=== PATIENT | male | born 1955 ===

== ENCOUNTER 2022-11-03 13:27 | Inpatient (IN) | payer OTHER ==
[~2022-11-03] VITALS: Ht 165.1 cm; Wt 56.7 kg
[2022-11-03] MEDS ORDERED: POLY119P17 PO (21:50)
[2022-11-03] MEDS ORDERED: ACET-2154 PO (21:50)
[2022-11-03] MEDS ORDERED: GABA-532 PO ×3 (21:50)
[2022-11-03] MEDS ORDERED: METF-440 PO (21:50)
[2022-11-03] MEDS ORDERED: LIDO30AD10 TP (21:50)
[2022-11-03] MEDS ORDERED: SENN8.6T19 PO (21:50)
[2022-11-03] MEDS: GABAPENTIN 100 MG CAPSULE PO SCH (22:00)
[2022-11-03] MEDS ORDERED: SENNOSIDES 1 TABLET PO PRN (22:00)
[2022-11-03] MEDS ORDERED: POLYETHYLENE GLYCOL 3350 238 GM POWDER PO PRN (22:00)
[2022-11-03 22:02] VITALS: BP 104/66; TEMP 97.5; O2SAT 95
[2022-11-04 04:50] VITALS: BP 101/63; TEMP 97.7; O2SAT 96
[2022-11-04 06:46] LABS: BASOPHILS % (AUTO) 0.6 % (0.0-2.0); EOSINOPHILS # (AUTO) 0.1 K/uL (0.0-0.7); EOSINOPHILS % (AUTO) 1.7 % (0.0-7.0); HEMATOCRIT 35.8 % (36.7-47.1); HEMOGLOBIN 12.1 g/dL (12.5-16.3); LYMPHOCYTES # (AUTO) 1.2 K/uL (0.8-4.8); LYMPHOCYTES % (AUTO) 25.4 % (20.5-51.5); MEAN CORPUSCULAR HEMOGLOBIN 30.7 uug (23.8-33.4); MEAN CORPUSCULAR HGB CONC 34 g/dL (32.5-36.3); MEAN CORPUSCULAR VOLUME 90.3 fL (73.0-96.2); MONOCYTES # (AUTO) 0.5 K/uL (0.1-1.30); MONOCYTES % (AUTO) 10.6 % (0.0-11.0); NEUTROPHILS # (AUTO) 2.9 K/uL (1.8-8.9); NEUTROPHILS % (AUTO) 61.7 % (38.5-71.5); PLATELET COUNT (AUTO) 195 K/uL (152-348); RED BLOOD CELL COUNT(AUTO) 3.96 MIL/uL (4.06-5.63); RED CELL DISTRIBUTION WIDTH 13.7 % (12.1-16.2); WHITE BLOOD COUNT (AUTO) 4.7 K/uL (3.6-10.2)
[2022-11-04 07:05] LABS: THYROID STIMULATING HORMONE 1.653 mIU/mL (0.358-3.740)
[2022-11-04 07:34] LABS: ALANINE AMINOTRANSFERASE 66 U/L (16-63); ALBUMIN 3.7 g/dL (3.4-5.0); ALKALINE PHOSPHATASE 53 U/L (50-136); ASPARTATE AMINOTRANSFERASE 22 U/L (15-37); BILIRUBIN,TOTAL 0.2 mg/dL (0.2-1.0); CALCIUM 8.9 mg/dL (8.5-10.1); CARBON DIOXIDE 27 mmol/L (21-32); CHLORIDE 101 mmol/L (98-107); CHOLESTEROL 161 mg/dL (<200); GLUCOSE 141 mg/dL (74-106); HDL CHOLESTEROL 55 mg/dL (40-60); PHOSPHOROUS 3.9 mg/dL (2.5-4.9); POTASSIUM 4.2 mmol/L (3.5-5.1); SODIUM SERUM 137 mmol/L (136-145); TOTAL PROTEIN, SERUM 7.3 g/dL (6.4-8.2); TRIGLYCERIDES 161 MG/DL (30-150); UREA NITROGEN, BLOOD 25 mg/dL (7-18)
[2022-11-04 07:35] LABS: C-REACTIVE PROTEIN < 0.1 mg/dL (0.0-0.9)
[2022-11-04 07:50] VITALS: BP 99/65; TEMP 97.6; O2SAT 98
[2022-11-04 08:07] LABS: CREATININE < 0.2 mg/dL (0.6-1.3); IRON, SERUM 68 ug/dL (50-175)
[2022-11-04] MEDS: GABAPENTIN 100 MG CAPSULE PO SCH ×3 (08:15→21:24)
[2022-11-04] MEDS: METFORMIN HCL 500 MG TABLET PO SCH ×2 (08:16→17:24)
[2022-11-04] MEDS: ACETAMINOPHEN 325 MG TABLET PO PRN ×2 (08:16→21:29)
[2022-11-04] MEDS ORDERED: LIDOCAINE 5% PATCH TD SCH (09:00)
[2022-11-04] MEDS ORDERED: MIRALAX 17 GM POWD.PACK PO PRN (10:45)
[2022-11-04 15:50] VITALS: BP 115/68; TEMP 97.6; O2SAT 96
[2022-11-04 20:08] VITALS: BP 98/60; TEMP 98.2; O2SAT 97
[2022-11-05 03:37] VITALS: TEMP 98.2
[2022-11-05 04:05] VITALS: BP 98/55; TEMP 98.3; O2SAT 98
[2022-11-05 08:00] VITALS: BP 108/62; TEMP 97.8; O2SAT 98
[2022-11-05] MEDS: METFORMIN HCL 500 MG TABLET PO SCH ×2 (08:11→16:21)
[2022-11-05] MEDS: GABAPENTIN 100 MG CAPSULE PO SCH ×3 (08:11→20:04)
[2022-11-05] MEDS: ACETAMINOPHEN 325 MG TABLET PO PRN (12:31)
[2022-11-05 16:00] VITALS: BP 102/66; TEMP 98.1; O2SAT 97
[2022-11-05 20:00] VITALS: BP 105/67; TEMP 98.2; O2SAT 97
[2022-11-06 04:00] VITALS: BP 103/67; TEMP 97.2; O2SAT 98
[2022-11-06 08:00] VITALS: BP 103/66; TEMP 97.6; O2SAT 98
[2022-11-06] MEDS: GABAPENTIN 100 MG CAPSULE PO SCH ×3 (08:23→21:41)
[2022-11-06] MEDS: PROTEIN SUPPLEMENT (PROSTAT) 30 ML LIQUID PO SCH (08:23)
[2022-11-06] MEDS: METFORMIN HCL 500 MG TABLET PO SCH ×2 (08:23→17:00)
[2022-11-06] MEDS: LIDOCAINE 5% PATCH TD PRN (08:39)
[2022-11-06] MEDS: ACETAMINOPHEN 325 MG TABLET PO PRN (08:39)
[2022-11-06 16:21] VITALS: BP 108/68; TEMP 98.2; O2SAT 97
[2022-11-06 20:00] VITALS: BP_SYST 101; BP_SYST 146; BP_DIAS 59; BP_DIAS 62; TEMP 97.2; TEMP 97.6; O2SAT 97; O2SAT 99
[2022-11-07 05:10] VITALS: BP 101/62; TEMP 97.6; O2SAT 99
[2022-11-07 06:45] VITALS: BP 99/63; TEMP 95.6; O2SAT 97
[2022-11-07 08:00] VITALS: BP 99/60; TEMP 97.7; O2SAT 96
[2022-11-07] MEDS: METFORMIN HCL 500 MG TABLET PO SCH ×2 (08:12→16:25)
[2022-11-07] MEDS: GABAPENTIN 100 MG CAPSULE PO SCH ×3 (08:12→21:02)
[2022-11-07] MEDS: PROTEIN SUPPLEMENT (PROSTAT) 30 ML LIQUID PO SCH (08:12)
[2022-11-07 11:00] VITALS: BP 106/62; TEMP 98; O2SAT 95
[2022-11-07 16:09] VITALS: BP 116/76; TEMP 98.2; O2SAT 97
[2022-11-07 20:00] VITALS: BP 120/72; TEMP 98.5; O2SAT 98
[2022-11-07] MEDS: ACETAMINOPHEN 325 MG TABLET PO PRN (21:02)
[2022-11-07] MEDS: LIDOCAINE 5% PATCH TD PRN (22:06)
[2022-11-08 06:30] VITALS: BP 99/63; TEMP 97.4; O2SAT 96
[2022-11-08 07:44] VITALS: BP 114/72; TEMP 98.2; O2SAT 98
[2022-11-08] MEDS: PROTEIN SUPPLEMENT (PROSTAT) 30 ML LIQUID PO SCH (08:20)
[2022-11-08] MEDS: METFORMIN HCL 500 MG TABLET PO SCH ×2 (09:49→17:26)
[2022-11-08] MEDS: GABAPENTIN 100 MG CAPSULE PO SCH ×3 (09:49→20:21)
[2022-11-08 15:59] VITALS: BP 96/66; TEMP 98.2; O2SAT 98
[2022-11-08 19:52] VITALS: BP 114/72; TEMP 97.8; O2SAT 96
[2022-11-08] MEDS: ACETAMINOPHEN 325 MG TABLET PO PRN (20:21)
[2022-11-09 06:00] VITALS: BP 108/68; TEMP 97.8; O2SAT 99
[2022-11-09 07:50] VITALS: BP 134/73; TEMP 97.1; O2SAT 97
[2022-11-09] MEDS: METFORMIN HCL 500 MG TABLET PO SCH ×2 (08:44→16:47)
[2022-11-09] MEDS: PROTEIN SUPPLEMENT (PROSTAT) 30 ML LIQUID PO SCH (08:44)
[2022-11-09] MEDS: GABAPENTIN 100 MG CAPSULE PO SCH ×3 (08:44→21:08)
[2022-11-09 09:00] VITALS: BP 134/73; TEMP 97.1; O2SAT 97
[2022-11-09 16:00] VITALS: BP 93/56; TEMP 98.1; O2SAT 98
[2022-11-09 20:34] VITALS: BP 98/62; TEMP 97.7; O2SAT 96
[2022-11-10 04:10] VITALS: BP 92/59; TEMP 97.5; O2SAT 97
[2022-11-10 08:00] VITALS: BP 109/66; TEMP 98; O2SAT 97
[2022-11-10] MEDS: PROTEIN SUPPLEMENT (PROSTAT) 30 ML LIQUID PO SCH (08:29)
[2022-11-10] MEDS: GABAPENTIN 100 MG CAPSULE PO SCH ×2 (08:58→13:54)
[2022-11-10] MEDS: METFORMIN HCL 500 MG TABLET PO SCH ×2 (08:58→17:21)
[2022-11-10 16:00] VITALS: BP 118/65; TEMP 97; O2SAT 97
== END 2022-11-10 17:30 | disposition home health service (06) | DRG 351 ==
PROVIDERS: ADMIT Physical Medicine & Rehabilitation Pain Medicine; ATTEND Physical Medicine & Rehabilitation Pain Medicine
DX: M60.89 Other myositis, multiple sites (principal); G72.9 Myopathy, unspecified; R53.1 Weakness; E11.9 Type 2 diabetes mellitus without complications; N40.0 Benign prostatic hyperplasia without lower urinary tract symptoms; Z88.6 Allergy status to analgesic agent; M79.2 Neuralgia and neuritis, unspecified; R13.10 Dysphagia, unspecified; M50.30 Other cervical disc degeneration, unspecified cervical region; Z79.84 Long term (current) use of oral hypoglycemic drugs
CPT/HCPCS: 36415; 82652; 83550; 83735; 84100; 84443; 85025; 86140; 97535-GO-CO; A4663